=== PATIENT | male | born 1950 | race Caucasian/White ===

== ENCOUNTER 2016-12-23 11:34 | Emergency (ER) | payer OTHER ==
[~2016-12-23] VITALS: Ht 170.2 cm; Wt 90.4 kg
[~2016-12-23 11:34] MED LIST: AMLODIPINE BESY10 MG PO; APRESOLINE25 MG PO; CLONAZEPAM0.5 MG PO; HYDROCHLOROTHIA25 MG PO; LEVAQUIN750 MG PO; LISINOPRIL10 MG PO; LISINOPRIL20 MG PO; METOPROLOL SUCC25 MG PO; METOPROLOL SUCC50 MG PO; NAPROSYN375 MG PO; NAPROXEN500 MG PO; NEURONTIN100 MG PO; PREDNISONE20 MG PO; PROVENTIL HFA6.7 GM IH; ROBAXIN500 MG PO; SERTRALINE HCL50 MG PO; TRAZODONE HCL300 MG PO; ZESTRIL10 MG PO; ZITHROMAX250 MG PO; ZOLOFT25 MG PO; ZOLOFT50 MG PO
[2016-12-23] MEDS ORDERED: VIGAMOX 0.60 DROP/3 BOTH EYES (13:16)
[2016-12-23 13:41] VITALS: BP 172/98
== END 2016-12-23 13:44 | disposition home or self-care (01) ==
LOC: EME 11:34
DX: H10.33 Unspecified acute conjunctivitis, bilateral (principal); I10 Essential (primary) hypertension
CPT/HCPCS: 99281; 99283

== ENCOUNTER 2016-12-26 13:19 | Emergency (ER) | payer OTHER ==
[~2016-12-26] VITALS: Ht 170.2 cm; Wt 88.9 kg
[~2016-12-26 13:19] MED LIST changes: +VIGAMOX 0.60 DROP/3 BOTH EYES
[2016-12-26] MEDS ORDERED: LOPRESSOR25 MG PO (15:14)
[2016-12-26] MEDS ORDERED: TOBREX5 ML BOTH EYES (15:14)
[2016-12-26] MEDS ORDERED: LISINOPRIL10 MG PO (15:14)
[2016-12-26 15:51] VITALS: BP 201/105
== END 2016-12-26 15:53 | disposition home or self-care (01) ==
LOC: EME 13:19
DX: H10.9 Unspecified conjunctivitis (principal); I10 Essential (primary) hypertension; T44.7X6A Underdosing of beta-adrenoreceptor antagonists, initial encounter; T46.4X6A Underdosing of angiotensin-converting-enzyme inhibitors, initial encounter; Z91.14 Patient's other noncompliance with medication regimen; F17.200 Nicotine dependence, unspecified, uncomplicated; Z88.0 Allergy status to penicillin
CPT/HCPCS: 99281; 99283

== ENCOUNTER 2017-03-27 04:31 | Emergency (ER) | payer OTHER ==
[~2017-03-27] VITALS: Ht 170.2 cm; Wt 86.0 kg
[~2017-03-27 04:31] MED LIST changes: +LOPRESSOR25 MG PO; +TOBREX5 ML BOTH EYES
[2017-03-27 04:45] VITALS: BP 188/104
[2017-03-27 06:20] LABS: ADD MIUA? YES; BILIRUBIN NEGATIVE; BLOOD NEGATIVE; COLOR YELLOW ((YELLOW)); GLUCOSE (STRIP) NEGATIVE; KETONES 20; LEUKOCYTES NEGATIVE; NITRITE NEGATIVE; PROTEIN (STRIP) >=500; SPECIFIC GRAVITY 1.024 (1.000-1.030); UROBILINOGEN 0.2 MG/DL (0.2-1.0)
[2017-03-27 06:24] LABS: BACTERIA NONE SEEN /HPF; EPITHELIAL CELLS RARE /HPF; MUCUS TRACE /LPF; RED BLOOD CELLS 0-5 /HPF (0-5); UCUL ADDED? NO; WHITE BLOOD CELLS 0-5 /HPF (0-5)
[2017-03-27 06:29] LABS: ADD MEDTOX COMMENT Y; AMPHETAMINE NEGATIVE (500 ng/mL); BARBITURATES NEGATIVE (200 ng/mL); BENZODIAZEPINES NEGATIVE (150 ng/mL); COCAINE NEGATIVE (150 ng/mL); INTERNAL CONTROLS VALID? YES; METHADONE NEGATIVE (200 ng/mL); METHAMPHETAMINE NEGATIVE (500 ng/mL); OPIATES (MORPHINE) NEGATIVE (100 ng/mL); OXYCODONE NEGATIVE (100 ng/mL); PHENCYCLIDINE NEGATIVE (25 ng/mL); PROPOXYPHENE NEGATIVE (300 ng/mL); THC CANNABINOIDS PRESUMPTIVE POSITIVE (50 ng/mL); TRICYCLIC ANTIDEPRESSANTS NEGATIVE (300 ng/mL)
[2017-03-27] MEDS ORDERED: PERCOCET 5/31 TABLET PO (23:04)
[2017-03-27] MEDS ORDERED: LOPRESSOR25 MG PO (23:04)
[2017-03-27] MEDS ORDERED: LISINOPRIL10 MG PO (23:04)
[2017-03-27] MEDS ORDERED: SKELAXIN800 MG PO (23:04)
== END 2017-03-27 06:35 | disposition left against medical advice (07) ==
LOC: EME 04:31
PROVIDERS: Emergency Medicine
DX: M54.42 Lumbago with sciatica, left side (principal); I10 Essential (primary) hypertension; F17.200 Nicotine dependence, unspecified, uncomplicated; Z88.0 Allergy status to penicillin
CPT/HCPCS: 81003; 84999; 99281; 99284

== ENCOUNTER 2017-03-27 19:58 | Emergency (ER) | payer OTHER ==
[~2017-03-27] VITALS: Ht 172.7 cm; Wt 86.4 kg
[2017-03-27 22:07] LABS: HEMATOCRIT 53.2 % (38.0-50.0); MCH 29.3 PG (29.0-34.0); MCHC 34.2 G/DL (30.0-36.0); MCV 85.7 FL (86-99); MEAN PLAT.VOLUME 9.6 uM^3 (9.0-12.4); PLATELET COUNT 215 K/uL (156-360); RBC DIS.WIDTH-CV 13.5 % (11.8-14.6); RBC DIS.WIDTH-SD 41.7 % (39-53); RED BLOOD COUNT 6.21 M/uL (4.00-5.50); WHITE BLOOD COUNT 8.5 K/uL (4.1-10.2)
[2017-03-27 22:15] LABS: CHLORIDE 102 mEq/L (99-109); SODIUM 137 mEq/L (136-147)
[2017-03-27 22:17] LABS: GLUCOSE 97 mg/dL (70-99)
[2017-03-27 22:19] LABS: ANION GAP 13 MEQ/L (2-14)
[2017-03-27 22:21] LABS: ALKALINE PHOSPHATASE 82 IU/L (3-129); GFR ESTIMATE (CALCULATED) 59 mL/min/
[2017-03-27 22:22] LABS: UREA NITROGEN (BUN) 26 mg/dL (9-23)
[2017-03-27] MEDS ORDERED: SKELAXIN800 MG PO (23:04)
[2017-03-27] MEDS ORDERED: PERCOCET 5/31 TABLET PO (23:04)
[2017-03-27] MEDS ORDERED: LOPRESSOR25 MG PO (23:04)
[2017-03-27] MEDS ORDERED: LISINOPRIL10 MG PO (23:04)
[2017-03-27 23:21] VITALS: BP 174/121
== END 2017-03-27 23:26 | disposition home or self-care (01) ==
LOC: EME 19:58 → EXP 19:58
PROVIDERS: Physician Assistant
DX: M54.40 Lumbago with sciatica, unspecified side (principal); G89.29 Other chronic pain; I10 Essential (primary) hypertension
CPT/HCPCS: 74176; 80053; 85027; 99281; 99284; J1100; J1885

== ENCOUNTER 2017-03-29 21:23 | Emergency (ER) | payer OTHER ==
[~2017-03-29] VITALS: Ht 172.7 cm; Wt 86.3 kg
[~2017-03-29 21:23] MED LIST changes: +PERCOCET 5/31 TABLET PO; +SKELAXIN800 MG PO
[2017-03-29] MEDS ORDERED: NAPROSYN500 MG PO (22:49)
[2017-03-30 00:50] VITALS: BP 129/99
== END 2017-03-30 00:48 | disposition home or self-care (01) ==
LOC: EME 21:23 → EXP 21:23
DX: S01.81XA Laceration without foreign body of other part of head, initial encounter (principal); Y08.09XA Assault by strike by other specified type of sport equipment, initial encounter; S02.82XA Fracture of other specified skull and facial bones, left side, initial encounter for closed fracture; W18.30XA Fall on same level, unspecified, initial encounter; Y92.009 Unspecified place in unspecified non-institutional (private) residence as the place of occurrence of the external cause; I10 Essential (primary) hypertension; J45.909 Unspecified asthma, uncomplicated; F32.9 Major depressive disorder, single episode, unspecified; F17.200 Nicotine dependence, unspecified, uncomplicated
CPT/HCPCS: 70450; 70486; 99281; 99284

== ENCOUNTER 2017-05-23 11:00 | Emergency (ER) | payer OTHER ==
[~2017-05-23] VITALS: Ht 170.2 cm; Wt 85.9 kg
[~2017-05-23 11:00] MED LIST changes: +NAPROSYN500 MG PO
[2017-05-23 12:15] LABS: HEMATOCRIT 54.2 % (38.0-50.0); MCH 29.5 PG (29.0-34.0); MCHC 34.3 G/DL (30.0-36.0); MEAN PLAT.VOLUME 10.1 uM^3 (9.0-12.4); PLATELET COUNT 242 K/uL (156-360); RBC DIS.WIDTH-CV 13.7 % (11.8-14.6); RBC DIS.WIDTH-SD 42.1 % (39-53); WHITE BLOOD COUNT 15.3 K/uL (4.1-10.2)
[2017-05-23 12:26] LABS: CHLORIDE 100 mEq/L (99-109); SODIUM 137 mEq/L (136-147)
[2017-05-23 12:28] LABS: GLUCOSE 110 mg/dL (70-99)
[2017-05-23 12:30] LABS: ANION GAP 11 MEQ/L (2-14)
[2017-05-23 12:32] LABS: ALKALINE PHOSPHATASE 78 IU/L (3-129); GFR ESTIMATE (CALCULATED) 54 mL/min/
[2017-05-23 12:33] LABS: UREA NITROGEN (BUN) 16 mg/dL (9-23)
[2017-05-23 12:35] LABS: LIPASE 122 U/L (1.0-51.0)
[2017-05-23 14:02] LABS: ADD MIUA? YES; BILIRUBIN NEGATIVE; BLOOD NEGATIVE; COLOR YELLOW ((YELLOW)); GLUCOSE (STRIP) NEGATIVE; KETONES 20; LEUKOCYTES NEGATIVE; NITRITE NEGATIVE; PROTEIN (STRIP) 100; SPECIFIC GRAVITY 1.023 (1.000-1.030); UROBILINOGEN 0.2 MG/DL (0.2-1.0)
[2017-05-23 14:05] LABS: BACTERIA NONE SEEN /HPF; EPITHELIAL CELLS RARE /HPF; MUCUS NONE SEEN /LPF; RED BLOOD CELLS 0-5 /HPF (0-5); UCUL ADDED? NO; WHITE BLOOD CELLS 0-5 /HPF (0-5)
[2017-05-23] MEDS ORDERED: CIPRO500 MG PO (15:01)
[2017-05-23] MEDS ORDERED: FLAGYL500 MG PO (15:02)
[2017-05-23 15:31] VITALS: BP 200/90
== END 2017-05-23 15:34 | disposition home or self-care (01) ==
LOC: EME 11:00
DX: K52.9 Noninfective gastroenteritis and colitis, unspecified (principal); E86.0 Dehydration; I10 Essential (primary) hypertension; Z90.49 Acquired absence of other specified parts of digestive tract; Z88.0 Allergy status to penicillin; F17.200 Nicotine dependence, unspecified, uncomplicated
CPT/HCPCS: 74177; 80053; 81003; 83690; 85027; 99281; 99285; J2270; J2405; J7030

== ENCOUNTER 2017-09-12 14:49 | Emergency (ER) | payer OTHER ==
[~2017-09-12] VITALS: Ht 170.2 cm; Wt 81.7 kg
[~2017-09-12 14:49] MED LIST changes: +CIPRO500 MG PO; +FLAGYL500 MG PO
[2017-09-12 17:28] LABS: BASOPHIL COUNT 0.1 K/uL (0-0.1); EOSINOPHIL (%) 0.2 % (0-5); HEMATOCRIT 49.8 % (38.0-50.0); IMMATURE GRANULOCYTE (%) 0.3 % (0.0-0.7); INSTRUMENT ABS NEUTROPHIL CT 8.2 K/uL; LYMPHOCYTE COUNT 1.1 K/uL (1.0-2.8); MCH 29.9 PG (29.0-34.0); MCHC 34.7 G/DL (30.0-36.0); MONOCYTE (%) 4.4 % (3-12); MONOCYTE COUNT 0.4 K/uL (0-0.8); NEUTROPHIL (%) 83.8 % (45-76); NEUTROPHIL COUNT 8.2 K/uL (1.8-6.4); RBC DIS.WIDTH-CV 12.9 % (11.8-14.6); RBC DIS.WIDTH-SD 40.2 % (39-53); RED BLOOD COUNT 5.79 M/uL (4.00-5.50); WHITE BLOOD COUNT 9.8 K/uL (4.1-10.2)
[2017-09-12 18:00] LABS: CHLORIDE 106 mEq/L (99-109); POTASSIUM 3.5 mEq/L (3.7-5.4); SODIUM 138 mEq/L (136-147)
[2017-09-12 18:01] LABS: GLUCOSE 101 mg/dL (70-99)
[2017-09-12 18:03] LABS: ANION GAP 10 MEQ/L (2-14)
[2017-09-12 18:05] LABS: GFR ESTIMATE (CALCULATED) > 59 mL/min/
[2017-09-12 18:06] LABS: UREA NITROGEN (BUN) 18 mg/dL (9-23)
[2017-09-12 18:19] LABS: PLAT.SUFFICIENCY ADEQUATE; PLATELET CLUMPS PRESENT - PLATELET C; PLATELET COUNT UNABLE TO REPORT K/uL (156-360)
[2017-09-12] MEDS ORDERED: LISINOPRIL10 MG PO (20:16)
[2017-09-12] MEDS ORDERED: MEDROL DOSEPAK4 MG PO (20:16)
[2017-09-12] MEDS ORDERED: PERCOCET 5/31 TABLET PO (20:16)
[2017-09-12 20:20] VITALS: BP 169/95
== END 2017-09-12 20:21 | disposition home or self-care (01) ==
LOC: EME 14:49
PROVIDERS: Emergency Medicine
DX: M47.896 Other spondylosis, lumbar region (principal); M48.061 Spinal stenosis, lumbar region without neurogenic claudication; M51.26 Other intervertebral disc displacement, lumbar region; R32 Unspecified urinary incontinence; I10 Essential (primary) hypertension; Z91.14 Patient's other noncompliance with medication regimen; F17.200 Nicotine dependence, unspecified, uncomplicated
CPT/HCPCS: 72148; 80048; 80048 91; 85025; 99281; 99285; J2270

== ENCOUNTER 2017-09-13 09:36 | Emergency (ER) | payer OTHER ==
[~2017-09-13] VITALS: Ht 170.2 cm; Wt 185.0 kg
[~2017-09-13 09:36] MED LIST changes: +MEDROL DOSEPAK4 MG PO
[2017-09-13 12:35] VITALS: BP 178/80
== END 2017-09-13 12:36 | disposition home or self-care (01) ==
LOC: EME 09:36
DX: M54.9 Dorsalgia, unspecified (principal); G89.29 Other chronic pain; I10 Essential (primary) hypertension; J45.909 Unspecified asthma, uncomplicated; F32.9 Major depressive disorder, single episode, unspecified; F41.9 Anxiety disorder, unspecified; K58.9 Irritable bowel syndrome, unspecified; Z90.49 Acquired absence of other specified parts of digestive tract
CPT/HCPCS: 99281; 99284; J2270

== ENCOUNTER 2017-09-14 18:40 | Observation (INO) | payer OTHER ==
[~2017-09-14] VITALS: Ht 170.2 cm; Wt 82.1 kg
[2017-09-14 19:34] LABS: BASOPHIL COUNT 0.1 K/uL (0-0.1); EOSINOPHIL (%) 1.4 % (0-5); EOSINOPHIL COUNT 0.1 K/uL (0-0.3); IMMATURE GRANULOCYTE (%) 0.3 % (0.0-0.7); INSTRUMENT ABS NEUTROPHIL CT 5.2 K/uL; LYMPHOCYTE COUNT 1.3 K/uL (1.0-2.8); MCH 29.9 PG (29.0-34.0); MCHC 34.5 G/DL (30.0-36.0); MCV 86.6 FL (86-99); MEAN PLAT.VOLUME 10.4 uM^3 (9.0-12.4); MONOCYTE (%) 9.5 % (3-12); MONOCYTE COUNT 0.7 K/uL (0-0.8); NEUTROPHIL (%) 70.7 % (45-76); NEUTROPHIL COUNT 5.2 K/uL (1.8-6.4); PLATELET COUNT 211 K/uL (156-360); RBC DIS.WIDTH-CV 12.9 % (11.8-14.6); RBC DIS.WIDTH-SD 40.6 % (39-53); RED BLOOD COUNT 5.66 M/uL (4.00-5.50); WHITE BLOOD COUNT 7.3 K/uL (4.1-10.2)
[2017-09-14 19:43] LABS: CHLORIDE 104 mEq/L (99-109); POTASSIUM 3.6 mEq/L (3.7-5.4); SODIUM 141 mEq/L (136-147)
[2017-09-14 19:45] LABS: GLUCOSE 95 mg/dL (70-99)
[2017-09-14 19:46] LABS: ANION GAP 11 MEQ/L (2-14)
[2017-09-14 19:47] LABS: TOTAL BILIRUBIN 0.7 mg/dL (0.0-1.0)
[2017-09-14 19:48] LABS: SERUM ETHYL ALCOHOL < 10 mg/dL
[2017-09-14 19:49] LABS: ALKALINE PHOSPHATASE 77 IU/L (3-129); GFR ESTIMATE (CALCULATED) > 59 mL/min/ (58.99-99999)
[2017-09-14 19:50] LABS: UREA NITROGEN (BUN) 20 mg/dL (9-23)
[2017-09-14 20:14] LABS: ADD MIUA? YES; BILIRUBIN NEGATIVE; BLOOD NEGATIVE; COLOR YELLOW ((YELLOW)); GLUCOSE (STRIP) NEGATIVE; KETONES 20; LEUKOCYTES NEGATIVE; NITRITE NEGATIVE; PROTEIN (STRIP) 100; SPECIFIC GRAVITY 1.019 (1.000-1.030); UROBILINOGEN 0.2 MG/DL (0.2-1.0)
[2017-09-14 20:29] LABS: BACTERIA NONE SEEN /HPF; EPITHELIAL CELLS RARE /HPF; MUCUS NONE SEEN /LPF; RED BLOOD CELLS 0-5 /HPF (0-5); UCUL ADDED? NO; WHITE BLOOD CELLS 0-5 /HPF (0-5)
[2017-09-15 06:15] VITALS: BP 114/56
[2017-09-15] MEDS ORDERED: LOPRESSOR25 MG PO ×2 (13:42→15:12)
[2017-09-15] MEDS ORDERED: HYDROCHLOROTHIA25 MG PO ×2 (13:42→15:13)
== END 2017-09-15 15:42 | disposition home or self-care (01) ==
LOC: EME 18:40 → EDOF 09-15 00:03 → ENRESERV 09-15 00:07 → 5WEST 09-15 01:07
PROVIDERS: Emergency Medicine
DX: I10 Essential (primary) hypertension (principal); I70.1 Atherosclerosis of renal artery; I70.0 Atherosclerosis of aorta; Z59.0 Homelessness; Z91.14 Patient's other noncompliance with medication regimen; Z91.19 Patient's noncompliance with other medical treatment and regimen; G89.29 Other chronic pain; M47.897 Other spondylosis, lumbosacral region; F32.9 Major depressive disorder, single episode, unspecified; F41.9 Anxiety disorder, unspecified; F17.200 Nicotine dependence, unspecified, uncomplicated; F12.90 Cannabis use, unspecified, uncomplicated; Z87.19 Personal history of other diseases of the digestive system; Z82.49 Family history of ischemic heart disease and other diseases of the circulatory system; Z80.0 Family history of malignant neoplasm of digestive organs; Z80.1 Family history of malignant neoplasm of trachea, bronchus and lung; Z80.8 Family history of malignant neoplasm of other organs or systems; Z88.0 Allergy status to penicillin
CPT/HCPCS: 71275; 74177; 80053; 81003; 85025; G0378; G0480; J0360; J7030

== ENCOUNTER 2017-09-20 11:55 | Observation (INO) | payer OTHER ==
[~2017-09-20] VITALS: Ht 170.2 cm; Wt 82.5 kg
[2017-09-20 13:28] LABS: BASOPHIL COUNT 0.1 K/uL (0-0.1); EOSINOPHIL COUNT 0.1 K/uL (0-0.3); HEMATOCRIT 49.4 % (38.0-50.0); IMMATURE GRANULOCYTE (%) 0.3 % (0.0-0.7); INSTRUMENT ABS NEUTROPHIL CT 5.5 K/uL; LYMPHOCYTE COUNT 0.9 K/uL (1.0-2.8); MCH 29.5 PG (29.0-34.0); MCHC 34.4 G/DL (30.0-36.0); MCV 85.6 FL (86-99); MONOCYTE (%) 8.1 % (3-12); MONOCYTE COUNT 0.6 K/uL (0-0.8); NEUTROPHIL (%) 76.8 % (45-76); NEUTROPHIL COUNT 5.5 K/uL (1.8-6.4); PLATELET COUNT 210 K/uL (156-360); RBC DIS.WIDTH-CV 12.8 % (11.8-14.6); RBC DIS.WIDTH-SD 39.8 % (39-53); RED BLOOD COUNT 5.77 M/uL (4.00-5.50); WHITE BLOOD COUNT 7.2 K/uL (4.1-10.2)
[2017-09-20 13:39] LABS: CHLORIDE 105 mEq/L (99-109); SODIUM 137 mEq/L (136-147)
[2017-09-20 13:42] LABS: GLUCOSE 93 mg/dL (70-99)
[2017-09-20 13:43] LABS: ANION GAP 11 MEQ/L (2-14)
[2017-09-20 13:45] LABS: ALKALINE PHOSPHATASE 78 IU/L (3-129); GFR ESTIMATE (CALCULATED) > 59 mL/min/ (58.99-99999); TOTAL BILIRUBIN 0.4 mg/dL (0.0-1.0)
[2017-09-20 13:46] LABS: UREA NITROGEN (BUN) 20 mg/dL (9-23)
[2017-09-20 13:54] LABS: TROP-I INTERPRETATION NEGATIVE; TROPONIN-I < 0.01 ng/mL (0.0-0.30)
[2017-09-20 17:07] LABS: HDL CHOLESTEROL 43 MG/DL (Desirable>=40); LDL CHOLESTEROL 97 mg/dL (Desirable<100); NON-HDL CHOLESTEROL 137 mg/dL (Desirable<160); TOTAL CHOLESTEROL 180 mg/dL (Desirable<200); TRIGLYCERIDES 200 MG/DL (Normal: <150)
[2017-09-20 18:26] LABS: Estimated Average Glucose 114 mg/dL (70-123); HEMOGLOBIN A1c (GLYCOHEMOGLOB) 5.6 % HGB (Below 5.7)
[2017-09-20 20:19] VITALS: BP 130/60
[2017-09-20 21:46] LABS: AMPHETAMINES QUANT VALUE 0 NG/ML; BARBITUATES QUANT VALUE 0 NG/ML; BENZODIAZEPINES QUANT VALUE 0 NG/ML; BENZODIAZEPINES, URINE SCREEN Negative (200 ng/mL); OPIATES QUANTITATIVE VALUE 0 NG/ML; PHENCYCLIDINE QUANT VALUE 0 NG/ML
[2017-09-20 23:13] VITALS: BP 151/75
[2017-09-20 23:16] VITALS: BP 135/70
[2017-09-21 04:06] VITALS: BP 147/80
[2017-09-21 06:00] LABS: ANION GAP 8 MEQ/L (2-14); CHLORIDE 106 MEQ/L (99-109); GFR ESTIMATE (CALCULATED) > 59 mL/min/ (58.99-99999); GLUCOSE 87 mg/dL (70-99); SAMPLE HEMOLYSIS CHECK 0; SAMPLE ICTERIC CHECK 0; SAMPLE LIPEMIA CHECK 0; SODIUM 139 MEQ/L (136-147); UREA NITROGEN (BUN) 23 mg/dL (9-23)
[2017-09-21 07:42] VITALS: BP 166/95; BP 175/85; BP 181/85
[2017-09-21 12:39] VITALS: BP 168/88
[2017-09-21] MEDS ORDERED: LOPRESSOR25 MG PO (13:33)
[2017-09-21] MEDS ORDERED: HYDROCHLOROTHIA25 MG PO (13:33)
[2017-09-21] MEDS ORDERED: ASPIR 8181 M1 PO (13:33)
[2017-09-21] MEDS ORDERED: LISINOPRIL20 MG PO (13:34)
[2017-09-21] MEDS ORDERED: LIPITOR20 MG PO (13:35)
== END 2017-09-21 15:52 | disposition home or self-care (01) ==
LOC: EME 11:55 → 5WEST 15:36 → EDOF 15:36 → ENRESERV 15:49 → 5WEST 20:14
PROVIDERS: Emergency Medicine; Family Medicine
DX: I16.0 Hypertensive urgency (principal); I10 Essential (primary) hypertension; R27.0 Ataxia, unspecified; R42 Dizziness and giddiness; Z59.0 Homelessness; W00.0XXA Fall on same level due to ice and snow, initial encounter; Z91.14 Patient's other noncompliance with medication regimen; Z91.19 Patient's noncompliance with other medical treatment and regimen; F17.210 Nicotine dependence, cigarettes, uncomplicated; F12.10 Cannabis abuse, uncomplicated; F10.10 Alcohol abuse, uncomplicated; G89.29 Other chronic pain; M54.9 Dorsalgia, unspecified; M25.559 Pain in unspecified hip; Z90.49 Acquired absence of other specified parts of digestive tract; Z87.19 Personal history of other diseases of the digestive system; F32.9 Major depressive disorder, single episode, unspecified; F41.9 Anxiety disorder, unspecified; Z88.0 Allergy status to penicillin
CPT/HCPCS: 70450; 70551; 72100; 80048; 80053; 80061; 80306 90; 82607; 82746; 83036; 84484; 85025; 93005; 93880; 99281; 99285; G0378; G8978 GP CJ; G8979 GP CI; G8980 CJ; G8987 GO CI; G8988 GO CH; G8989 GO CI; J1650; J1885; J2060; J2270

== ENCOUNTER 2017-09-27 04:59 | Emergency (ER) | payer OTHER ==
[~2017-09-27] VITALS: Ht 170.2 cm; Wt 81.7 kg
[~2017-09-27 04:59] MED LIST changes: +ASPIR 8181 M1 PO; +LIPITOR20 MG PO
[2017-09-27] MEDS ORDERED: ZITHROMAX Z-PA250 MG PO (07:33)
[2017-09-27 07:38] VITALS: BP 182/92
== END 2017-09-27 07:40 | disposition home or self-care (01) ==
LOC: EME 04:59
DX: J32.9 Chronic sinusitis, unspecified (principal); I10 Essential (primary) hypertension; Z91.14 Patient's other noncompliance with medication regimen; R42 Dizziness and giddiness; H91.91 Unspecified hearing loss, right ear; F17.200 Nicotine dependence, unspecified, uncomplicated
CPT/HCPCS: 99281; 99284

== ENCOUNTER 2017-10-03 10:10 | Emergency (ER) | payer OTHER ==
[~2017-10-03] VITALS: Ht 170.2 cm; Wt 84.9 kg
[~2017-10-03 10:10] MED LIST changes: +ZITHROMAX Z-PA250 MG PO
[2017-10-03 12:02] LABS: HEMATOCRIT 44.6 % (38.0-50.0); HEMOGLOBIN 15.3 G/DL (12.5-16.6); MCH 30.2 PG (29.0-34.0); MCHC 34.3 G/DL (30.0-36.0); MCV 88.1 FL (86-99); PLATELET COUNT 226 K/uL (156-360); RBC DIS.WIDTH-CV 13.5 % (11.8-14.6); RBC DIS.WIDTH-SD 43.6 % (39-53); RED BLOOD COUNT 5.06 M/uL (4.00-5.50); WHITE BLOOD COUNT 6.8 K/uL (4.1-10.2)
[2017-10-03 12:15] LABS: APPEARANCE SL.HAZY ((CLEAR)); BILIRUBIN NEGATIVE; BLOOD NEGATIVE; COLOR YELLOW ((YELLOW)); GLUCOSE (STRIP) NEGATIVE; KETONES 5; LEUKOCYTES NEGATIVE; NITRITE NEGATIVE; PROTEIN (STRIP) 100; SPECIFIC GRAVITY 1.021 (1.000-1.030); UROBILINOGEN 0.2 MG/DL (0.2-1.0)
[2017-10-03 12:15] LABS: ALBUMIN 3.9 g/dL (3.2-4.8); CHLORIDE 104 mEq/L (99-109); POTASSIUM 3.5 mEq/L (3.7-5.4); SODIUM 139 mEq/L (136-147)
[2017-10-03 12:17] LABS: GLUCOSE 100 mg/dL (70-99)
[2017-10-03 12:18] LABS: TOTAL PROTEIN 7.1 g/dL (6.4-8.3)
[2017-10-03 12:19] LABS: TOTAL BILIRUBIN 0.3 mg/dL (0.0-1.0)
[2017-10-03 12:20] LABS: SERUM ETHYL ALCOHOL < 10 mg/dL
[2017-10-03 12:21] LABS: ALKALINE PHOSPHATASE 68 IU/L (3-129); CREATININE 1.3 mg/dL (0.6-1.3); GFR ESTIMATE (CALCULATED) 59 mL/min/ (58.99-99999)
[2017-10-03 12:22] LABS: UREA NITROGEN (BUN) 20 mg/dL (9-23)
[2017-10-03 12:23] LABS: AST (GOT) 30 IU/L (2-34)
[2017-10-03 12:24] LABS: ALT (GPT) 31 IU/L (3-49)
[2017-10-03 12:26] LABS: TROP-I INTERPRETATION NEGATIVE; TROPONIN-I < 0.01 ng/mL (0.0-0.30)
[2017-10-03 12:35] LABS: COCAINE NEGATIVE (150 ng/mL); METHAMPHETAMINE NEGATIVE (500 ng/mL); PHENCYCLIDINE NEGATIVE (25 ng/mL); THC CANNABINOIDS PRESUMPTIVE POSITIVE (50 ng/mL)
[2017-10-03 12:36] LABS: AMPHETAMINE NEGATIVE (500 ng/mL); BARBITURATES NEGATIVE (200 ng/mL); BENZODIAZEPINES NEGATIVE (150 ng/mL); BUPRENORPHINE PRESUMPTIVE POSITIVE (10 ng/mL); METHADONE NEGATIVE (200 ng/mL); OPIATES (MORPHINE) NEGATIVE (100 ng/mL); OXYCODONE NEGATIVE (100 ng/mL); PROPOXYPHENE NEGATIVE (300 ng/mL); TRICYCLIC ANTIDEPRESSANTS NEGATIVE (300 ng/mL)
[2017-10-03 12:39] LABS: BACTERIA NONE SEEN /HPF; CALCIUM OXALATE CRYSTALS 3+ /HPF; EPITHELIAL CELLS NONE SEEN /HPF; MUCUS TRACE /LPF; RED BLOOD CELLS 0-5 /HPF (0-5); WHITE BLOOD CELLS 0-5 /HPF (0-5)
[2017-10-03 14:43] VITALS: BP 201/105
== END 2017-10-03 14:48 | disposition home or self-care (01) ==
LOC: EME → EDBD 10:10 → EME 14:48
PROVIDERS: Emergency Medicine
DX: R42 Dizziness and giddiness (principal); T40.605A Adverse effect of unspecified narcotics, initial encounter; I10 Essential (primary) hypertension; H61.20 Impacted cerumen, unspecified ear; K58.9 Irritable bowel syndrome, unspecified; J45.909 Unspecified asthma, uncomplicated; F41.9 Anxiety disorder, unspecified; F32.9 Major depressive disorder, single episode, unspecified; M54.9 Dorsalgia, unspecified; Z88.0 Allergy status to penicillin; F17.200 Nicotine dependence, unspecified, uncomplicated
CPT/HCPCS: 70450; 80053; 81003; 84484; 84999; 85027; 93005; 99281; 99285; G0480

== ENCOUNTER 2017-10-04 18:33 | Inpatient (IN) | payer OTHER ==
[~2017-10-04] VITALS: Ht 170.2 cm; Wt 81.0 kg
[2017-10-04 20:15] LABS: BASOPHIL (%) 0.4 % (0-1); EOSINOPHIL (%) 0.2 % (0-5); HEMATOCRIT 45.8 % (38.0-50.0); HEMOGLOBIN 15.6 G/DL (12.5-16.6); IMMATURE GRANULOCYTE (%) 0.4 % (0.0-0.7); LYMPHOCYTE (%) 5.8 % (15-42); LYMPHOCYTE COUNT 0.5 K/uL (1.0-2.8); MCH 29.7 PG (29.0-34.0); MCHC 34.1 G/DL (30.0-36.0); MCV 87.2 FL (86-99); MONOCYTE (%) 6.6 % (3-12); MONOCYTE COUNT 0.5 K/uL (0-0.8); NEUTROPHIL (%) 86.6 % (45-76); PLATELET COUNT 241 K/uL (156-360); RBC DIS.WIDTH-CV 13.2 % (11.8-14.6); RBC DIS.WIDTH-SD 41.8 % (39-53); RED BLOOD COUNT 5.25 M/uL (4.00-5.50); WHITE BLOOD COUNT 8.1 K/uL (4.1-10.2)
[2017-10-04 20:28] LABS: CHLORIDE 102 mEq/L (99-109); SODIUM 138 mEq/L (136-147)
[2017-10-04 20:30] LABS: GLUCOSE 106 mg/dL (70-99)
[2017-10-04 20:33] LABS: SERUM ETHYL ALCOHOL < 10 mg/dL
[2017-10-04 20:34] LABS: CREATININE 1.4 mg/dL (0.6-1.3); GFR ESTIMATE (CALCULATED) 54 mL/min/ (58.99-99999)
[2017-10-04 20:35] LABS: UREA NITROGEN (BUN) 24 mg/dL (9-23)
[2017-10-04 20:36] LABS: POTASSIUM 4.4 mEq/L (3.7-5.4)
[2017-10-05 00:59] VITALS: BP 128/56
[2017-10-05 07:41] VITALS: BP 123/58
[2017-10-05 15:33] VITALS: BP 113/57
[2017-10-06 07:53] VITALS: BP 208/84
[2017-10-06 11:52] VITALS: BP 160/98
[2017-10-06 15:45] VITALS: BP 152/98
[2017-10-07 09:30] VITALS: BP 220/105
[2017-10-07 09:31] VITALS: BP 198/91
[2017-10-07 12:16] VITALS: BP 174/81
[2017-10-07 13:20] LABS: BASOPHIL (%) 0.6 % (0-1); EOSINOPHIL (%) 1.2 % (0-5); EOSINOPHIL COUNT 0.1 K/uL (0-0.3); HEMATOCRIT 48.3 % (38.0-50.0); HEMOGLOBIN 16.6 G/DL (12.5-16.6); IMMATURE GRANULOCYTE (%) 0.6 % (0.0-0.7); LYMPHOCYTE (%) 14.1 % (15-42); LYMPHOCYTE COUNT 0.7 K/uL (1.0-2.8); MCH 29.7 PG (29.0-34.0); MCHC 34.4 G/DL (30.0-36.0); MCV 86.4 FL (86-99); MONOCYTE (%) 7.6 % (3-12); MONOCYTE COUNT 0.4 K/uL (0-0.8); NEUTROPHIL (%) 75.9 % (45-76); NEUTROPHIL COUNT 3.9 K/uL (1.8-6.4); PLATELET COUNT 264 K/uL (156-360); RBC DIS.WIDTH-SD 40.5 % (39-53); RED BLOOD COUNT 5.59 M/uL (4.00-5.50); WHITE BLOOD COUNT 5.1 K/uL (4.1-10.2)
[2017-10-07 13:35] LABS: CHLORIDE 103 MEQ/L (99-109); POTASSIUM 4.3 MEQ/L (3.7-5.4); SODIUM 138 MEQ/L (136-147)
[2017-10-07 13:40] LABS: GFR ESTIMATE (CALCULATED) > 59 mL/min/ (58.99-99999); GLUCOSE 98 mg/dL (70-99); UREA NITROGEN (BUN) 17 mg/dL (9-23)
[2017-10-07 16:09] VITALS: BP 156/73
[2017-10-08 07:51] VITALS: BP 158/72
[2017-10-08 09:10] LABS: ALBUMIN 4.4 g/dL (3.2-4.8)
[2017-10-08 09:11] LABS: CHLORIDE 101 mEq/L (99-109); POTASSIUM 4.2 mEq/L (3.7-5.4); SODIUM 136 mEq/L (136-147)
[2017-10-08 09:13] LABS: GLUCOSE 124 mg/dL (70-99); TOTAL PROTEIN 8.1 g/dL (6.4-8.3)
[2017-10-08 09:15] LABS: TOTAL BILIRUBIN 0.7 mg/dL (0.0-1.0)
[2017-10-08 09:16] LABS: ALKALINE PHOSPHATASE 75 IU/L (3-129)
[2017-10-08 09:17] LABS: CREATININE 1.3 mg/dL (0.6-1.3); GFR ESTIMATE (CALCULATED) 59 mL/min/ (58.99-99999)
[2017-10-08 09:18] LABS: AST (GOT) 38 IU/L (2-34); UREA NITROGEN (BUN) 25 mg/dL (9-23)
[2017-10-08 09:19] LABS: ALT (GPT) 40 IU/L (3-49)
[2017-10-08 15:36] VITALS: BP 199/84
[2017-10-09 04:35] VITALS: BP 207/99
[2017-10-09 07:10] VITALS: BP 137/62
[2017-10-09 11:54] VITALS: BP 137/66
[2017-10-09 15:28] VITALS: BP 146/69
[2017-10-10 07:41] VITALS: BP 183/89
[2017-10-10 10:55] VITALS: BP 147/66
[2017-10-10 15:16] VITALS: BP 152/74
[2017-10-11 02:47] VITALS: BP 163/78
[2017-10-11 07:34] VITALS: BP 147/67
[2017-10-11] MEDS ORDERED: LIPITOR20 MG PO (09:57)
[2017-10-11] MEDS ORDERED: LOPRESSOR25 MG PO (09:57)
[2017-10-11] MEDS ORDERED: ZOLOFT100 MG PO (09:57)
[2017-10-11] MEDS ORDERED: LISINOPRIL20 MG PO (09:57)
[2017-10-11] MEDS ORDERED: ASPIR 8181 M1 PO (09:57)
[2017-10-11] MEDS ORDERED: HYDROCHLOROTHIA25 MG PO (09:57)
== END 2017-10-11 11:55 | disposition home or self-care (01) | DRG 881 ==
LOC: EME 18:33 → 1WEST 22:51 → EDOF 22:51 → 1WEST 22:51 → ENRESERV 10-05 00:12 → 1WEST 10-05 00:47
PROVIDERS: Emergency Medicine; Psychiatry & Neurology Psychiatry; Student in an Organized Health Care Education/Training Program
DX: F43.21 Adjustment disorder with depressed mood (principal); R45.851 Suicidal ideations; F12.10 Cannabis abuse, uncomplicated; I70.1 Atherosclerosis of renal artery; F17.210 Nicotine dependence, cigarettes, uncomplicated; I15.8 Other secondary hypertension; F16.90 Hallucinogen use, unspecified, uncomplicated; G89.29 Other chronic pain; M54.9 Dorsalgia, unspecified; E78.5 Hyperlipidemia, unspecified; Z91.19 Patient's noncompliance with other medical treatment and regimen; Z59.0 Homelessness; Z91.14 Patient's other noncompliance with medication regimen; Z90.49 Acquired absence of other specified parts of digestive tract; Z68.29 Body mass index [BMI] 29.0-29.9, adult
CPT/HCPCS: 70450; 80048; 80053; 81003; 84484; 84999; 85025; 85027; 90686; 90839; 93005; 97150 GO; 97165 GO; 99281; 99285; G0480

== ENCOUNTER 2017-10-16 17:01 | Emergency (ER) | payer OTHER ==
[~2017-10-16] VITALS: Ht 170.2 cm; Wt 75.9 kg
[~2017-10-16 17:01] MED LIST changes: +ZOLOFT100 MG PO
[2017-10-16 17:57] LABS: HEMATOCRIT 43.7 % (38.0-50.0); HEMOGLOBIN 15.2 G/DL (12.5-16.6); MCHC 34.8 G/DL (30.0-36.0); MCV 86.4 FL (86-99); PLATELET COUNT 213 K/uL (156-360); RBC DIS.WIDTH-CV 13.1 % (11.8-14.6); RBC DIS.WIDTH-SD 40.9 % (39-53); RED BLOOD COUNT 5.06 M/uL (4.00-5.50); WHITE BLOOD COUNT 5.2 K/uL (4.1-10.2)
[2017-10-16 17:58] LABS: CHLORIDE 109 mEq/L (99-109); POTASSIUM 3.5 mEq/L (3.7-5.4); SODIUM 139 mEq/L (136-147)
[2017-10-16 18:00] LABS: GLUCOSE 92 mg/dL (70-99)
[2017-10-16 18:04] LABS: CREATININE 1.1 mg/dL (0.6-1.3); GFR ESTIMATE (CALCULATED) > 59 mL/min/ (58.99-99999)
[2017-10-16 18:05] LABS: UREA NITROGEN (BUN) 24 mg/dL (9-23)
[2017-10-16 18:28] LABS: APPEARANCE CLEAR ((CLEAR)); BILIRUBIN NEGATIVE; BLOOD NEGATIVE; COLOR YELLOW ((YELLOW)); GLUCOSE (STRIP) NEGATIVE; KETONES NEGATIVE; LEUKOCYTES NEGATIVE; NITRITE NEGATIVE; PROTEIN (STRIP) NEGATIVE; SPECIFIC GRAVITY 1.024 (1.000-1.030); UCUL ADDED? NO
[2017-10-16 19:01] LABS: THC CANNABINOIDS PRESUMPTIVE POSITIVE (50 ng/mL)
[2017-10-16 19:02] LABS: AMPHETAMINE NEGATIVE (500 ng/mL); BARBITURATES NEGATIVE (200 ng/mL); BENZODIAZEPINES NEGATIVE (150 ng/mL); BUPRENORPHINE NEGATIVE (10 ng/mL); COCAINE NEGATIVE (150 ng/mL); METHADONE NEGATIVE (200 ng/mL); METHAMPHETAMINE NEGATIVE (500 ng/mL); OPIATES (MORPHINE) NEGATIVE (100 ng/mL); OXYCODONE NEGATIVE (100 ng/mL); PHENCYCLIDINE NEGATIVE (25 ng/mL); PROPOXYPHENE NEGATIVE (300 ng/mL); TRICYCLIC ANTIDEPRESSANTS NEGATIVE (300 ng/mL)
[2017-10-16 19:52] LABS: ERTH.SED.RATE 6 MM/HR (0-20)
[2017-10-16 21:22] VITALS: BP 190/90
== END 2017-10-16 21:24 | disposition home or self-care (01) ==
LOC: EME 17:01
PROVIDERS: Emergency Medicine
DX: R32 Unspecified urinary incontinence (principal); I10 Essential (primary) hypertension; T44.7X6A Underdosing of beta-adrenoreceptor antagonists, initial encounter; T46.4X6A Underdosing of angiotensin-converting-enzyme inhibitors, initial encounter; Z91.19 Patient's noncompliance with other medical treatment and regimen; F17.200 Nicotine dependence, unspecified, uncomplicated; J44.9 Chronic obstructive pulmonary disease, unspecified; F32.9 Major depressive disorder, single episode, unspecified; F41.9 Anxiety disorder, unspecified; Z88.0 Allergy status to penicillin
CPT/HCPCS: 74176; 80048; 81003; 84999; 85027; 85651; 99281; 99285

== ENCOUNTER 2017-10-26 18:50 | Emergency (ER) | payer OTHER ==
[~2017-10-26] VITALS: Ht 170.2 cm; Wt 81.6 kg
[2017-10-26] MEDS ORDERED: ROBAXIN500 MG PO (21:22)
[2017-10-26] MEDS ORDERED: NEURONTIN100 MG PO (21:22)
[2017-10-26 21:44] VITALS: BP 167/82
== END 2017-10-26 21:45 | disposition home or self-care (01) ==
LOC: EME 18:50
DX: M54.5 Low back pain (principal); I10 Essential (primary) hypertension; J44.9 Chronic obstructive pulmonary disease, unspecified; K58.9 Irritable bowel syndrome, unspecified; F41.9 Anxiety disorder, unspecified; F32.9 Major depressive disorder, single episode, unspecified; Z90.49 Acquired absence of other specified parts of digestive tract; F17.200 Nicotine dependence, unspecified, uncomplicated; Z88.0 Allergy status to penicillin
CPT/HCPCS: 99281; 99284

== ENCOUNTER 2017-11-14 09:29 | Emergency (ER) | payer OTHER ==
[~2017-11-14] VITALS: Ht 170.2 cm; Wt 84.9 kg
[2017-11-14] MEDS ORDERED: MOBIC7.5 MG PO (10:01)
[2017-11-14] MEDS ORDERED: LIDODERM 5% P1 PATCH TD (10:01)
[2017-11-14] MEDS ORDERED: FLEXERIL10 MG PO (10:01)
[2017-11-14 10:50] VITALS: BP 168/105
== END 2017-11-14 10:51 | disposition home or self-care (01) ==
LOC: EME 09:29
DX: M54.9 Dorsalgia, unspecified (principal); W00.0XXA Fall on same level due to ice and snow, initial encounter; I10 Essential (primary) hypertension; F17.200 Nicotine dependence, unspecified, uncomplicated; Z88.0 Allergy status to penicillin
CPT/HCPCS: 99281; 99284

== ENCOUNTER 2017-11-21 17:48 | Emergency (ER) | payer OTHER ==
[~2017-11-21] VITALS: Ht 170.2 cm; Wt 81.8 kg
[~2017-11-21 17:48] MED LIST changes: +FLEXERIL10 MG PO; +LIDODERM 5% P1 PATCH TD; +MOBIC7.5 MG PO
[2017-11-21 18:44] LABS: HEMATOCRIT 46.9 % (38.0-50.0); MCH 29.5 PG (29.0-34.0); MCHC 34.1 G/DL (30.0-36.0); MCV 86.4 FL (86-99); PLATELET COUNT 261 K/uL (156-360); RBC DIS.WIDTH-CV 13.4 % (11.8-14.6); RBC DIS.WIDTH-SD 42.1 % (39-53); RED BLOOD COUNT 5.43 M/uL (4.00-5.50); WHITE BLOOD COUNT 4.6 K/uL (4.1-10.2)
[2017-11-21 19:05] LABS: CHLORIDE 103 MEQ/L (99-109); POTASSIUM 3.5 MEQ/L (3.7-5.4); SODIUM 137 MEQ/L (136-147)
[2017-11-21 19:11] LABS: CREATININE 1.2 MG/DL (0.6-1.3); GFR ESTIMATE (CALCULATED) > 59 mL/min/ (58.99-99999); GLUCOSE 92 mg/dL (70-99); UREA NITROGEN (BUN) 22 mg/dL (9-23)
[2017-11-21] MEDS ORDERED: MOTRIN800 MG PO (21:36)
[2017-11-21 22:28] VITALS: BP 197/97
[2017-11-22] MEDS ORDERED: METHOCARBAMOL500 MG PO (04:43)
[2017-11-22] MEDS ORDERED: LOPRESSOR50 MG PO (04:43)
== END 2017-11-21 22:29 | disposition home or self-care (01) ==
LOC: EME 17:48
DX: G89.29 Other chronic pain (principal); M54.5 Low back pain; F17.200 Nicotine dependence, unspecified, uncomplicated; I10 Essential (primary) hypertension; Z91.81 History of falling; J44.9 Chronic obstructive pulmonary disease, unspecified; F32.9 Major depressive disorder, single episode, unspecified; F41.9 Anxiety disorder, unspecified; Z88.0 Allergy status to penicillin
CPT/HCPCS: 80048; 85027; 99281; 99284; J1100; J1885

== ENCOUNTER 2017-11-22 00:24 | Emergency (ER) | payer OTHER ==
[~2017-11-22] VITALS: Ht 170.2 cm; Wt 78.7 kg
[~2017-11-22 00:24] MED LIST changes: +MOTRIN800 MG PO
[2017-11-22 01:54] LABS: HEMATOCRIT 45.5 % (38.0-50.0); HEMOGLOBIN 15.5 G/DL (12.5-16.6); MCH 29.4 PG (29.0-34.0); MCHC 34.1 G/DL (30.0-36.0); MCV 86.2 FL (86-99); PLATELET COUNT 246 K/uL (156-360); RBC DIS.WIDTH-CV 13.3 % (11.8-14.6); RBC DIS.WIDTH-SD 41.3 % (39-53); RED BLOOD COUNT 5.28 M/uL (4.00-5.50); WHITE BLOOD COUNT 9.2 K/uL (4.1-10.2)
[2017-11-22 02:05] LABS: ALBUMIN 4.1 g/dL (3.2-4.8); CHLORIDE 106 mEq/L (99-109); POTASSIUM 3.7 mEq/L (3.7-5.4); SODIUM 138 mEq/L (136-147)
[2017-11-22 02:07] LABS: GLUCOSE 127 mg/dL (70-99); TOTAL PROTEIN 7.1 g/dL (6.4-8.3)
[2017-11-22 02:09] LABS: TOTAL BILIRUBIN 0.6 mg/dL (0.0-1.0)
[2017-11-22 02:11] LABS: ALKALINE PHOSPHATASE 93 IU/L (3-129); CREATININE 1.2 mg/dL (0.6-1.3); GFR ESTIMATE (CALCULATED) > 59 mL/min/ (58.99-99999)
[2017-11-22 02:12] LABS: UREA NITROGEN (BUN) 23 mg/dL (9-23)
[2017-11-22 02:13] LABS: AST (GOT) 32 IU/L (2-34)
[2017-11-22 02:14] LABS: ALT (GPT) 35 IU/L (3-49)
[2017-11-22 02:15] LABS: TROP-I INTERPRETATION NEGATIVE; TROPONIN-I 0.03 ng/mL (0.0-0.30)
[2017-11-22 04:26] LABS: TROP-I INTERPRETATION NEGATIVE; TROPONIN-I 0.03 ng/mL (0.0-0.30)
[2017-11-22] MEDS ORDERED: LOPRESSOR50 MG PO (04:43)
[2017-11-22] MEDS ORDERED: METHOCARBAMOL500 MG PO (04:43)
[2017-11-22 05:01] VITALS: BP 167/89
== END 2017-11-22 05:20 | disposition home or self-care (01) ==
LOC: EME 00:24
PROVIDERS: Emergency Medicine
DX: R07.9 Chest pain, unspecified (principal); M54.5 Low back pain; G89.29 Other chronic pain; I10 Essential (primary) hypertension; T44.7X6A Underdosing of beta-adrenoreceptor antagonists, initial encounter; Z91.128 Patient's intentional underdosing of medication regimen for other reason; F17.200 Nicotine dependence, unspecified, uncomplicated; J44.9 Chronic obstructive pulmonary disease, unspecified; F32.9 Major depressive disorder, single episode, unspecified; F41.9 Anxiety disorder, unspecified; K58.9 Irritable bowel syndrome, unspecified; Z88.0 Allergy status to penicillin
CPT/HCPCS: 80053; 84484; 85027; 93005; 99281; 99285

== ENCOUNTER 2017-12-01 14:25 | Emergency (ER) | payer OTHER ==
[~2017-12-01] VITALS: Ht 170.2 cm; Wt 80.9 kg
[~2017-12-01 14:25] MED LIST changes: +LOPRESSOR50 MG PO; +METHOCARBAMOL500 MG PO
[2017-12-01 15:31] LABS: HEMATOCRIT 43.7 % (38.0-50.0); HEMOGLOBIN 14.9 G/DL (12.5-16.6); MCH 29.9 PG (29.0-34.0); MCHC 34.1 G/DL (30.0-36.0); MCV 87.6 FL (86-99); PLATELET COUNT 217 K/uL (156-360); RBC DIS.WIDTH-CV 13.7 % (11.8-14.6); RBC DIS.WIDTH-SD 43.8 % (39-53); RED BLOOD COUNT 4.99 M/uL (4.00-5.50); WHITE BLOOD COUNT 5.3 K/uL (4.1-10.2)
[2017-12-01 15:43] LABS: CHLORIDE 107 mEq/L (99-109); POTASSIUM 3.9 mEq/L (3.7-5.4); SODIUM 140 mEq/L (136-147)
[2017-12-01 15:45] LABS: GLUCOSE 81 mg/dL (70-99)
[2017-12-01 15:49] LABS: CREATININE 1.5 mg/dL (0.6-1.3); GFR ESTIMATE (CALCULATED) 50 mL/min/ (58.99-99999)
[2017-12-01 15:50] LABS: UREA NITROGEN (BUN) 24 mg/dL (9-23)
[2017-12-01 19:13] VITALS: BP 219/100
== END 2017-12-01 19:14 | disposition home or self-care (01) ==
LOC: EME 14:25
DX: R42 Dizziness and giddiness (principal); I44.4 Left anterior fascicular block; I67.89 Other cerebrovascular disease; J44.9 Chronic obstructive pulmonary disease, unspecified; I10 Essential (primary) hypertension; K58.9 Irritable bowel syndrome, unspecified; F41.9 Anxiety disorder, unspecified; F32.9 Major depressive disorder, single episode, unspecified; F17.200 Nicotine dependence, unspecified, uncomplicated; Z90.89 Acquired absence of other organs; Z88.0 Allergy status to penicillin
CPT/HCPCS: 70450; 80048; 85027; 93005; 99281; 99284

== ENCOUNTER 2017-12-02 21:38 | Inpatient (IN) | payer OTHER ==
[~2017-12-02] VITALS: Ht 170.2 cm; Wt 80.2 kg
[2017-12-02 22:01] LABS: HEMATOCRIT 47.7 % (38.0-50.0); HEMOGLOBIN 16.4 G/DL (12.5-16.6); MCH 29.7 PG (29.0-34.0); MCHC 34.4 G/DL (30.0-36.0); MCV 86.3 FL (86-99); PLATELET COUNT 248 K/uL (156-360); RBC DIS.WIDTH-CV 13.6 % (11.8-14.6); RBC DIS.WIDTH-SD 42.9 % (39-53); RED BLOOD COUNT 5.53 M/uL (4.00-5.50); WHITE BLOOD COUNT 6.5 K/uL (4.1-10.2)
[2017-12-02 22:14] LABS: CHLORIDE 104 mEq/L (99-109); POTASSIUM 3.9 mEq/L (3.7-5.4); SODIUM 140 mEq/L (136-147)
[2017-12-02 22:15] LABS: AMPHETAMINE NEGATIVE (500 ng/mL); BARBITURATES NEGATIVE (200 ng/mL); BENZODIAZEPINES NEGATIVE (150 ng/mL); BUPRENORPHINE NEGATIVE (10 ng/mL); COCAINE NEGATIVE (150 ng/mL); METHADONE NEGATIVE (200 ng/mL); METHAMPHETAMINE NEGATIVE (500 ng/mL); OPIATES (MORPHINE) NEGATIVE (100 ng/mL); OXYCODONE NEGATIVE (100 ng/mL); PHENCYCLIDINE NEGATIVE (25 ng/mL); PROPOXYPHENE NEGATIVE (300 ng/mL); THC CANNABINOIDS NEGATIVE (50 ng/mL); TRICYCLIC ANTIDEPRESSANTS NEGATIVE (300 ng/mL)
[2017-12-02 22:17] LABS: GLUCOSE 111 mg/dL (70-99)
[2017-12-02 22:19] LABS: SERUM ETHYL ALCOHOL < 10 mg/dL
[2017-12-02 22:20] LABS: CREATININE 1.6 mg/dL (0.6-1.3); GFR ESTIMATE (CALCULATED) 46 mL/min/ (58.99-99999); UREA NITROGEN (BUN) 28 mg/dL (9-23)
[2017-12-03 05:24] LABS: APPEARANCE CLEAR ((CLEAR)); BILIRUBIN NEGATIVE; BLOOD NEGATIVE; COLOR COLORLESS ((YELLOW)); GLUCOSE (STRIP) NEGATIVE; KETONES NEGATIVE; LEUKOCYTES NEGATIVE; NITRITE NEGATIVE; PROTEIN (STRIP) NEGATIVE; SPECIFIC GRAVITY 1.009 (1.000-1.030); UCUL ADDED? NO; UROBILINOGEN 0.2 MG/DL (0.2-1.0)
[2017-12-03 13:18] VITALS: BP 164/80
[2017-12-03 15:52] VITALS: BP 155/68
[2017-12-04 07:26] VITALS: BP 120/76
[2017-12-04 15:29] VITALS: BP 163/79
[2017-12-05 07:41] VITALS: BP 151/67
[2017-12-05 07:47] LABS: CHLORIDE 107 MEQ/L (99-109); CREATININE 1.3 MG/DL (0.6-1.3); GFR ESTIMATE (CALCULATED) 59 mL/min/ (58.99-99999); GLUCOSE 87 mg/dL (70-99); MAGNESIUM 2.2 mg/dl (1.3-2.7); PHOSPHORUS 3.6 mg/dL (2.5-4.9); POTASSIUM 4.3 MEQ/L (3.7-5.4); SODIUM 141 MEQ/L (136-147); UREA NITROGEN (BUN) 31 mg/dL (9-23)
[2017-12-05 07:56] LABS: BASOPHIL (%) 0.8 % (0-1); BASOPHIL COUNT 0.1 K/uL (0-0.1); EOSINOPHIL (%) 3.9 % (0-5); EOSINOPHIL COUNT 0.2 K/uL (0-0.3); HEMATOCRIT 45.8 % (38.0-50.0); HEMOGLOBIN 15.2 G/DL (12.5-16.6); IMMATURE GRANULOCYTE (%) 0.3 % (0.0-0.7); LYMPHOCYTE (%) 27.7 % (15-42); LYMPHOCYTE COUNT 1.6 K/uL (1.0-2.8); MCH 28.8 PG (29.0-34.0); MCHC 33.2 G/DL (30.0-36.0); MCV 86.9 FL (86-99); MONOCYTE (%) 8.6 % (3-12); MONOCYTE COUNT 0.5 K/uL (0-0.8); NEUTROPHIL (%) 58.7 % (45-76); NEUTROPHIL COUNT 3.5 K/uL (1.8-6.4); PLATELET COUNT 235 K/uL (156-360); RBC DIS.WIDTH-CV 13.6 % (11.8-14.6); RBC DIS.WIDTH-SD 43.4 % (39-53); RED BLOOD COUNT 5.27 M/uL (4.00-5.50); WHITE BLOOD COUNT 5.9 K/uL (4.1-10.2)
[2017-12-05 15:20] VITALS: BP 121/58
[2017-12-06 07:57] VITALS: BP 147/65
[2017-12-06 15:37] VITALS: BP 190/81
[2017-12-06 21:13] VITALS: BP 186/83
[2017-12-07 07:41] VITALS: BP 169/77
[2017-12-07 16:07] VITALS: BP 139/67
[2017-12-08 07:58] VITALS: BP 155/65
[2017-12-08 15:48] VITALS: BP 131/61
[2017-12-09 08:00] VITALS: BP 158/79
[2017-12-09 12:13] VITALS: BP 153/70
[2017-12-09 15:45] VITALS: BP 138/63
[2017-12-10 07:34] VITALS: BP 165/74
[2017-12-10] MEDS ORDERED: TRAZODONE HCL50 MG PO (09:29)
[2017-12-10] MEDS ORDERED: GEODON40 MG PO (09:29)
[2017-12-10] MEDS ORDERED: MIRTAZAPINE30 MG PO (09:29)
== END 2017-12-10 11:18 | disposition home or self-care (01) | DRG 885 ==
LOC: EME 21:38 → 1WEST 12-03 11:57 → EDOF 12-03 11:57 → ENRESERV 12-03 12:28 → 1WEST 12-03 13:01
PROVIDERS: Emergency Medicine; Internal Medicine Nephrology
DX: F33.1 Major depressive disorder, recurrent, moderate (principal); R45.851 Suicidal ideations; F10.10 Alcohol abuse, uncomplicated; G89.29 Other chronic pain; M54.9 Dorsalgia, unspecified; N17.9 Acute kidney failure, unspecified; E78.5 Hyperlipidemia, unspecified; Z59.0 Homelessness; Z91.19 Patient's noncompliance with other medical treatment and regimen; F41.9 Anxiety disorder, unspecified; F17.210 Nicotine dependence, cigarettes, uncomplicated; I12.9 Hypertensive chronic kidney disease with stage 1 through stage 4 chronic kidney disease, or unspecified chronic kidney disease; N18.3 Chronic kidney disease, stage 3 (moderate); T39.395A Adverse effect of other nonsteroidal anti-inflammatory drugs [NSAID], initial encounter; Z90.49 Acquired absence of other specified parts of digestive tract; Z88.0 Allergy status to penicillin
CPT/HCPCS: 76770; 80048; 81003; 83735; 84100; 85025; 85027; 90839; 97150 GO; 97165 GO; 99281; 99285; G0480

== ENCOUNTER 2017-12-19 14:32 | Emergency (ER) | payer OTHER ==
[~2017-12-19] VITALS: Ht 170.2 cm; Wt 82.1 kg
[~2017-12-19 14:32] MED LIST changes: +GEODON40 MG PO; +MIRTAZAPINE30 MG PO; +TRAZODONE HCL50 MG PO
[2017-12-19 17:24] LABS: APPEARANCE CLEAR ((CLEAR)); BILIRUBIN NEGATIVE; BLOOD NEGATIVE; COLOR YELLOW ((YELLOW)); GLUCOSE (STRIP) NEGATIVE; KETONES NEGATIVE; LEUKOCYTES TRACE; NITRITE NEGATIVE; PROTEIN (STRIP) 30; SPECIFIC GRAVITY 1.021 (1.000-1.030); UROBILINOGEN 0.2 MG/DL (0.2-1.0)
[2017-12-19 17:37] LABS: BACTERIA NONE SEEN /HPF; EPITHELIAL CELLS NONE SEEN /HPF; MUCUS TRACE /LPF; RED BLOOD CELLS 0-5 /HPF (0-5); WHITE BLOOD CELLS 0-5 /HPF (0-5)
[2017-12-19 18:02] VITALS: BP 190/107
== END 2017-12-19 18:03 | disposition left against medical advice (07) ==
LOC: EME 14:32
PROVIDERS: Physician Assistant
DX: M79.606 Pain in leg, unspecified (principal); M48.061 Spinal stenosis, lumbar region without neurogenic claudication; J44.9 Chronic obstructive pulmonary disease, unspecified; I10 Essential (primary) hypertension; F41.9 Anxiety disorder, unspecified; F32.9 Major depressive disorder, single episode, unspecified; F17.200 Nicotine dependence, unspecified, uncomplicated; Z90.49 Acquired absence of other specified parts of digestive tract; Z88.0 Allergy status to penicillin
CPT/HCPCS: 72131; 81003

== ENCOUNTER 2018-01-13 21:13 | Emergency (ER) | payer OTHER ==
[~2018-01-13] VITALS: Ht 167.6 cm; Wt 85.9 kg
[2018-01-14] MEDS ORDERED: LIDODERM 5% P1 PATCH TD (01:39)
[2018-01-14] MEDS ORDERED: MOTRIN800 MG PO (01:39)
[2018-01-14] MEDS ORDERED: SKELAXIN800 MG PO (01:39)
[2018-01-14 02:05] VITALS: BP 185/105
== END 2018-01-14 02:05 | disposition home or self-care (01) ==
LOC: EME 21:13 → EXP 21:13
DX: M54.9 Dorsalgia, unspecified (principal); J44.9 Chronic obstructive pulmonary disease, unspecified; J45.909 Unspecified asthma, uncomplicated; I10 Essential (primary) hypertension; F41.9 Anxiety disorder, unspecified; F17.200 Nicotine dependence, unspecified, uncomplicated; Z88.0 Allergy status to penicillin; F32.9 Major depressive disorder, single episode, unspecified; K58.9 Irritable bowel syndrome, unspecified
CPT/HCPCS: 99281; 99283

== ENCOUNTER 2018-04-22 17:06 | Emergency (ER) | payer OTHER ==
[~2018-04-22] VITALS: Ht 170.2 cm; Wt 79.6 kg
[2018-04-22 17:52] LABS: HEMATOCRIT 45.1 % (38.0-50.0); HEMOGLOBIN 15.6 G/DL (12.5-16.6); MCH 29.9 PG (29.0-34.0); MCHC 34.6 G/DL (30.0-36.0); MCV 86.6 FL (86-99); PLATELET COUNT 222 K/uL (156-360); RBC DIS.WIDTH-CV 13.2 % (11.8-14.6); RBC DIS.WIDTH-SD 41.9 % (39-53); RED BLOOD COUNT 5.21 M/uL (4.00-5.50); WHITE BLOOD COUNT 6.1 K/uL (4.1-10.2)
[2018-04-22 18:04] LABS: CHLORIDE 105 mEq/L (99-109); POTASSIUM 4.1 mEq/L (3.7-5.4); SODIUM 140 mEq/L (136-147)
[2018-04-22 18:06] LABS: GLUCOSE 90 mg/dL (70-99)
[2018-04-22 18:10] LABS: CREATININE 1.4 mg/dL (0.6-1.3); GFR ESTIMATE (CALCULATED) 54 mL/min/ (58.99-99999)
[2018-04-22 18:11] LABS: UREA NITROGEN (BUN) 26 mg/dL (9-23)
[2018-04-22] MEDS ORDERED: TOPROL XL50 MG PO (21:26)
[2018-04-22 21:51] VITALS: BP 196/107
== END 2018-04-22 21:53 | disposition home or self-care (01) ==
LOC: EME 17:06
PROVIDERS: Nurse Practitioner Family
DX: I10 Essential (primary) hypertension (principal); R51 Headache; N28.9 Disorder of kidney and ureter, unspecified; R42 Dizziness and giddiness; R11.0 Nausea; Z79.82 Long term (current) use of aspirin; F17.200 Nicotine dependence, unspecified, uncomplicated
CPT/HCPCS: 70450; 80048; 85027; 93005; 99281; 99284

== ENCOUNTER 2018-05-02 22:07 | Emergency (ER) | payer OTHER ==
[~2018-05-02] VITALS: Ht 170.2 cm; Wt 80.7 kg
[~2018-05-02 22:07] MED LIST changes: +TOPROL XL50 MG PO
[2018-05-02] MEDS ORDERED: LIDODERM 5% P1 PATCH TD (23:13)
[2018-05-02] MEDS ORDERED: FLEXERIL10 MG PO (23:13)
[2018-05-02 23:58] LABS: APPEARANCE CLEAR ((CLEAR)); BILIRUBIN NEGATIVE; BLOOD NEGATIVE; COLOR YELLOW ((YELLOW)); GLUCOSE (STRIP) NEGATIVE; KETONES NEGATIVE; LEUKOCYTES NEGATIVE; NITRITE NEGATIVE; PROTEIN (STRIP) 30; SPECIFIC GRAVITY 1.029 (1.000-1.030); UCUL ADDED? NO
[2018-05-03 00:28] VITALS: BP 111/69
== END 2018-05-03 00:46 | disposition home or self-care (01) ==
LOC: EME 22:07
PROVIDERS: Emergency Medicine
DX: M54.5 Low back pain (principal); G89.29 Other chronic pain; R32 Unspecified urinary incontinence; M51.37 Other intervertebral disc degeneration, lumbosacral region; I10 Essential (primary) hypertension; F17.200 Nicotine dependence, unspecified, uncomplicated
CPT/HCPCS: 72100; 81003; 99281; 99284; J1885